=== PATIENT | male | born 1955 | race African-American/Black ===

== ENCOUNTER 2022-05-29 18:39 | Emergency (ER) | payer OTHER, SELFPAY ==
[2022-05-29] VITALS (12 sets, daily range): BP systolic 111–137; BP diastolic 59–79; PULSE 50–65; RESP 10–18; TEMP 36.6–37.2; O2SAT 97–100
--- NOTE | ~2022-05-29 | XR_ITS ---
EXAMINATION: XR chest 2V DATE: 05/29/2022 19:39 INDICATION: Chest pain TECHNIQUE: frontal and lateral views of the chest were obtained. COMPARISON: None FINDINGS: Calcified pulmonary nodule versus right hilar lymph node consistent with old granulomatous disease. N o other airspace opacities, pulmonary edema, pleural effusion or pneumothorax. Heart size is normal. Mild to moderate thoracic spondylosis. IMPRESSION: 1. No acute cardiopulmonary disease. Reviewed, dictated and finalized at location A. [employer] [employer]
--- NOTE | 2022-05-29 18:43 | ECG_ITS ---
Measurements Intervals [place] Rate: 55 P: 55 [place]: 124 QRS: 56 QRSD: 84 T: 58 QT: 450 QTc: 434 Interpretive Statements SINUS BRADYCARDIA POSSIBLE LEFT ATRIAL ENLARGEMENT BASELINE ARTIFACT- I, II, III, AVR BORDERLINE ECG NO PREVIOUS ECG AVAILABLE FOR COMPARISON Electronically Signed On 05-30-2022 6:57:39 [employer] by Matti Tony D.O.
[2022-05-29 19:01] LABS: Basophils Percent Auto 0.3 % (0.2-1.2); Eosinophils Absolute Auto 0.1 K/mm3 (0-0.3); Eosinophils Percent Auto 1.5 % (0-4.4); Hematocrit 35.9 % (42.0-52.0); Hemoglobin 12.6 g/dL (14.0-18.0); Immature Granulocyte Absolute 0.03 K/mm3 (0.00-0.031); Immature Granulocyte Percent A 0.5 % (0-0.5); Lymphocytes Absolute Auto 1.38 K/mm3 (0.9-3.2); Lymphocytes Percent Auto 22.9 % (18.3-44.2); Mean Corpuscular HGB Conc 35.1 g/dl (32-36); Mean Corpuscular Hemoglobin 31.7 pg (26-34); Mean Corpuscular Volume 90.2 fl (80-100); Mean Platelet Volume 10.6 fl (7.4-10.4); Monocytes Absolute Auto 0.4 K/mm3 (0.1-0.6); Monocytes Percent Auto 5.8 % (2.6-8.5); Neutrophils Absolute Auto 4.2 K/mm3 (1.3-6.7); Platelet Count Result 242 k/mm3 (150-375); Red Blood Count 3.98 M/mm3 (4.6-6.20); Red Cell Distribution Width 12.2 % (11.5-14.5)
[2022-05-29 19:09] LABS: Alanine Aminotransferase 20 U/L (6-50); Albumin Level 4.1 g/dL (3.5-5.1); Alkaline Phosphatase 109 U/L (38-126); Anion Gap 5 mmol/L (8-16); Aspartate Amino Transferase 23 U/L (17-59); Blood Urea Nitrogen 12 mg/dL (9-20); Calcium 8.6 mg/dL (8.4-10.2); Carbon Dioxide 29 mmol/L (22-30); Chloride 104 mmol/L (98-107); Estimated CRCL calculation 89 ml/min; Estimated Glomerular Filt Rate > 60; Glucose 268 mg/dL (65-110); Lipase 41 U/L (23-300); Sodium 138 mmol/L (137-145)
[2022-05-29 19:19] LABS: Prothrombin Time 12.8 Seconds (11.1-14.7)
[2022-05-29 19:23] LABS: Troponin I < 0.012 ng/mL (0.000-0.034)
--- NOTE | 2022-05-29 20:23 | ED.GENADULT ---
HPI - General Adult General Chief complaint: Chest Pain Stated complaint: CHEST PAIN Time Seen by Provider: 05/29/22 19:06 History of Present Illness HPI narrative: This is a 66-year-old male presenting to the ED with chest pain. the pain is located on the right side of his chest. It started at 6:00 p.m. today and described as a pressure /burning. It is nonradiating. It is 8 out 10 intensity at onset but has decreased now to 5. It is constant, he has never experienced pain like this before. It is improved when he moves and there are no exacerbating symptoms. He did have 2 episodes of vomiting earlier in the day he did not have chest pain at that time. He denies diaphoresis, shortness of breath, exertional component, fever chills or productive cough. He denies lower extremity edema or history of blood clots. He has no family history of cardiac disease Related Data Allergies Allergy/AdvReac Type Severity Reaction Status Date / Time No Known Allergies Allergy Verified 05/29/22 18:50 [facility] Past Medical History Medical History Diabetes Social History Social History (Updated 05/29/22 @ 20:36 by Mo Roland MD) Social History: patient denies use of drugs alcohol tobacco. Exam Narrative: APPEARANCE: No apparent distress. Head: atraumatic. EYES: EOMI, NOSE: Atraumatic NECK: Trachea midline RESPIRATORY: No increased rate of breathing, clear to auscultation bilaterally CARDIOVASCULAR: RRR, no peripheral edema ABDOMINAL: Non-distended, soft nontender no guarding rebound MUSCULOSKELETAl: No obvious deformities NEURO: Alert. Moving 4/4 extremities SKIN:: Warm, dry. Normal color PSYCHIATRIC: Normal affect Course Vital Signs Vital signs: Vital Signs Temperature 98.4 F 05/29/22 18:39 Pulse Rate 57 L 05/29/22 18:39 Respiratory Rate 12 05/29/22 18:39 Blood Pressure 136/79 05/29/22 18:39 Pulse Oximetry 100 05/29/22 18:39 Oxygen Delivery Room Air 05/29/22 18:39 Temperature 98.9 F 05/29/22 19:31 Pulse Rate 51 L 05/29/22 20:20 Respiratory Rate 16 05/29/22 20:20 Blood Pressure 127/67 05/29/22 19:46 Pulse Oximetry 99 05/29/22 20:20 Oxygen Delivery Room Air 05/29/22 18:52 Medical Decision Making [facility] Narrative Medical decision making narrative: -Presentation: 66-year-old male presenting with right-sided chest pain. patient is well-appearing with stable vital signs. A ACS workup has been ordered and. Will also get a BNP, D-dimer chest x-ray and EKG. -DDX includes but is not limited to: ACS, musculoskeletal pain, PE, pleurisy, Chest wall pain -Co-morbidities complicating care: diabetes -Social determinants of health: patient lives in [place] is in town for work. lives with his -External Chart Review: None -Hx from independent Sources: none -Discussion of Management/Consultants: none -Independent interpretation of studies: CBC was within normal limits. Metabolic panel was within normal limits. Troponin negative x2. BNP was negative. D-dimer was within the age adjusted limit. HEART Score for Major Cardiac Events from [employer] on 05/29/2022 All calculations should be rechecked by clinician prior to use RESULT SUMMARY: 3 points Low Score (0-3 points) Risk of MACE of 0.9-1.7%. INPUTS: History ?> 0 = Slightly suspicious EKG ?> 0 = Normal Age ?> 2 = >=5 Risk factors ?> 1 = 1-2 risk factors Initial troponin ?> 0 = <=ormal limit Independent EKG interpretation: Rhythm [sinus], Rate [55], [place] -[normal], [place] -[normal], QRS [narrow], QTC [normal], T waves -[negative for concerning inversions], ST Segments - [Negative for concerning elevations] Final interpretations: Sinus bradycardia Chest x-ray was normal. Dx tests considered but not ordered: CT PE -D-dimer was in the age adjusted limit. -Procedures: -Interventions: -Shared decision making / Dispositio
[2022-05-29 21:10] LABS: NT Pro B Type Natriuretic Pept 71 pg/mL (19.9-100)
[2022-05-29] MEDS: ACETAMINOPHEN 500 MG TABLET 1000 MG PO (21:13)
[2022-05-29] MEDS: FAMOTIDINE 20 MG/2 ML VIAL IV PUSH (21:32)
[2022-05-29 22:03] LABS: Troponin I < 0.012 ng/mL (0.000-0.034)
== END 2022-05-29 22:27 | disposition home or self-care (01) ==
PROVIDERS: Emergency Medicine; Emergency Provider Emergency Medicine
DX: R07.9 Chest pain, unspecified (principal); E11.9 Type 2 diabetes mellitus without complications; R00.1 Bradycardia, unspecified; R94.31 Abnormal electrocardiogram [ECG] [EKG]
CPT/HCPCS: 36415; 71046; 80053; 83690; 83880; 84484; 85025; 85380; 85610; 85730; 93005; 96374; 99284; A9270